=== PATIENT | female | born 1955 | race Caucasian/White ===

== ENCOUNTER 2019-07-27 13:00 | Outpatient (RCR) | payer OTHER | END 2019-08-02 | LOC: PT 13:00 | PROVIDERS: ATTEND Specialist | DX: S13.4XXD Sprain of ligaments of cervical spine, subsequent encounter (principal); M62.81 Muscle weakness (generalized); M54.6 Pain in thoracic spine; M25.511 Pain in right shoulder; M25.611 Stiffness of right shoulder, not elsewhere classified | CPT/HCPCS: 97139 ==

== ENCOUNTER 2019-08-26 08:00 | Outpatient (RCR) | payer OTHER | END 2019-09-01 | LOC: PT 08:00 | PROVIDERS: ATTEND Specialist | DX: S13.4XXD Sprain of ligaments of cervical spine, subsequent encounter (principal); M62.81 Muscle weakness (generalized); M54.6 Pain in thoracic spine; M25.511 Pain in right shoulder; M25.611 Stiffness of right shoulder, not elsewhere classified ==

== ENCOUNTER 2019-09-30 11:00 | Outpatient (RCR) | payer OTHER | END 2019-10-02 | LOC: PT 11:00 | PROVIDERS: ATTEND Specialist | DX: S13.4XXD Sprain of ligaments of cervical spine, subsequent encounter (principal); M62.81 Muscle weakness (generalized); M54.6 Pain in thoracic spine; M25.511 Pain in right shoulder; M25.611 Stiffness of right shoulder, not elsewhere classified | CPT/HCPCS: 97139 ==

== ENCOUNTER 2019-10-21 14:08 | Outpatient (RCR) | payer OTHER | END 2019-11-01 | LOC: PT 14:08 | PROVIDERS: ATTEND Specialist | DX: S13.4XXD Sprain of ligaments of cervical spine, subsequent encounter (principal); M54.6 Pain in thoracic spine; M25.511 Pain in right shoulder; M25.611 Stiffness of right shoulder, not elsewhere classified; M62.81 Muscle weakness (generalized) | CPT/HCPCS: 97139 ==